=== PATIENT | female | born 1955 | race Asian ===

== ENCOUNTER 2017-05-23 13:01 | Emergency (ER) | payer BC, OTHER ==
[~2017-05-23] VITALS: Ht 157.5 cm; Wt 56.0 kg
[~2017-05-23 13:01] MED LIST: LOSA25TA2 PO; METF1000 PO; METF750T PO; SIMV20TA2 PO
[2017-05-23 13:13] VITALS: Ht 157.5 cm; Wt 56.0 kg
[2017-05-23] MEDS ORDERED: LIDOCAINE 2% (MDV) 20 ML INJ INJ ONE (14:00)
[2017-05-23] MEDS ORDERED: HYDROCODONE/APAP (5/325) TAB PO ONE (14:00)
[2017-05-23] MEDS ORDERED: LIDOCAINE 2% JELLY 5 ML TOP ONE (14:00)
[2017-05-23] MEDS ORDERED: SILVER NITRATE SWAB TOP ONE (14:00)
[2017-05-23] MEDS ORDERED: LIDOCAINE 2%/EPI MPF (SDV) 20 ML VIAL INJ ONE (14:30)
[2017-05-23] MEDS ORDERED: CEPH500C PO (14:58)
[2017-05-23] MEDS ORDERED: IBUP-1542 PO (14:58)
--- NOTE | 2017-05-24 15:35 | ERD ---
ER Documentation Chief Complaint Date/Time DATE: 05/24/17 TIME: 15:31 Chief Complaint laceration right hand base of 5th finger HPI 61-year-old woman sustained a large skin avulsion at the hypothenar eminence of the right hand while using a cucumber slicer. She cannot control the bleeding at home, and states her tetanus immunization is up-to-date. Patient denies paresis or paresthesias of the hand, no difficulty flexing and extending the fingers of the right hand, no chest pain or shortness of breath, no domestic violence. ROS All systems reviewed and are negative except as per history of present illness. Medications Home Meds Active Scripts Ibuprofen* (Ibuprofen*) 600 Mg Tablet, 600 MG PO Q8 for PAIN AND/OR INFLAMMATION , #60 TAB Prov:SANDI HAWKINS MD 05/23/17 Cephalexin* (Cephalexin*) 500 Mg Capsule, 500 MG PO TID, #15 CAP Prov:SANDI HAWKINS MD 05/23/17 Ibuprofen* (Ibuprofen*) 600 Mg Tablet, 600 MG PO Q8 for PAIN AND/OR INFLAMMATION , #30 TAB Prov:SANDI HAWKINS MD 05/23/17 Reported Medications Losartan Potassium* (Cozaar*) 25 Mg Tablet, 25 MG PO DAILY, TAB 03/25/14 Simvastatin (Simvastatin) 20 Mg Tablet, 20 MG PO DAILY, TAB 03/25/14 Metformin* (Glucophage* XR) 750 Mg Tab.sr.24h, 1500 MG PO DAILY, TAB 03/25/14 Metformin Hcl* (Metformin Hcl*) 1,000 Mg Tablet, 1000 MG PO WITH BREAKFAST, TAB 03/25/14 Allergies Allergies: Coded Allergies: No Known Allergy (Unverified , 09/07/14) PMhx/Soc Diabetes mellitus, hypertension History of Surgery: Yes (LAPAROSCOPY) Anesthesia Reaction: No Hx Neurological Disorder: No Hx Respiratory Disorders: No Hx Cardiac Disorders: Yes (HNT, HIGH CHOLESTEROL) Hx Psychiatric Problems: No Hx Miscellaneous Medical Probl: No Hx Alcohol Use: Yes Hx Substance Use: No Hx Tobacco Use: Yes Smoking Status: Light tobacco smoker FmHx Family History: No diabetes Physical Exam Vitals Vital Signs Date Time Temp Pulse Resp B/P Pulse Ox O2 Delivery O2 Flow Rate FiO2 05/23/17 13:13 98.1 95 18 141/72 97 Physical Exam GENERAL: Well-developed, well-nourished, well-hydrated, moderate discomfort. HEENT: Moist mucous membranes, pink conjunctiva, no cervical spine tenderness or step-off deformities, no goiter, no jaundice or icterus, extraocular movements intact without pain. No submandibular induration, and no pharyngeal erythema NEURO: Alert and oriented 3, cranial nerves II through XII intact bilaterally, pupils equal round reactive to light, no focal deficits or facial asymmetry, sensation intact distally Strength 5/5 in upper and lower extremities bilaterally CARDIAC: Regular rate and rhythm, no murmurs rubs or gallops LUNGS: Clear bilaterally no wheezing crackles or stridor ABDOMEN: Soft nontender, no guarding, no rigidity, no rebound, no psoas sign no obturator sign. Normoactive bowel sounds SKIN: Warm and dry to touch, 4 x 6 cm circular skin avulsion on the ulnar aspect of the right palm just over the hypothenar eminence. Multiple punctate pulsatile bleeds in the skin avulsion, no skin flap or laceration noted. No bone or tendon exposed. Patient has full flexion extension abduction abduction of her fingers both passively and actively without difficulty. Sensation to the median, ulnar, radial nerve of the right hand is intact and equal bilaterally. EXTREMITIES: No clubbing cyanosis or edema, calves are bilaterally symmetrical, no Homans sign, no popliteal cord sign. Distal pulses equal and bilateral PSYCH: Normal affect without agitation or irritability Results 24 hrs Current Medications Medications (Trade) Dose Ordered Sig/Melinda Route PRN Reason Start Time Stop Time Status Last Admin Dose Admin Lidocaine (Xylocaine 2% Jelly) 1 applic ONCE ONCE TOP 05/23/17 14:00 05/23/17 14:01 DC 05/23/17 14:04 Silver Nitrate (Silver Nitrate Swabs) 2 stick ONCE ONCE TOP 05/23/17 14:00 05/23/17 14:01 DC 05/23/17 14:04 Lidocaine (Xylocaine 2% (Mdv) 20 ml) 20 ml ONCE ONCE INJ 05/23/17 14:00 05/23/17 14:01 DC Acetaminophen/ Hydrocodone Bitart ([place] (5/325)) 1 tab ONCE ONCE PO 05/23/17 14:00 05/23/17 14:01 DC 05/23/17 14:04 Lidocaine/ Epinephrine (Xylocaine 2%/ Epi Mpf(Sdv)) 20 ml ONCE ONCE INJ 05/23/17 14:30 05/23/17 14:31 DC Procedures/MDM I administered Percocet 1 tablet p.o. for pain control. Skin avulsion was irrigated copiously with normal saline and pressure dressing was applied. Viscous lidocaine was applied for anesthetic purposes. Procedure note #1: Right ulnar nerve block. Site was inspected, irrigated and cleansed with Betadine. I administered 4 cc of 1% lidocaine without epinephrine to the right ulnar nerve at the second radial crease. About 5 minutes later patient fell some anesthesia to the ulnar nerve of the right hand and some pain relief. Regional nerve block was performed by me at the bedside using sterile gloves and sterile field. Patient tolerated procedure well. Procedure note #2: 1% lidocaine with epinephrine was administered to the subcutaneous tissue over the skin avulsion to help small arterial bleeding. About 6 absorbable 4-O sutures were placed to ligate the bleeding vessels. After bleeding was controlled, tissue adhesive was also applied over the skin avulsion to help with continued bleeding. After these interventions all bleeding was controlled, patient felt much better. Nonadherent dressing was applied over the skin avulsion and the entire right hand was wrapped with gauze. Patient feels much better at this time, and vital signs are normal, symptoms have improved. I did give strict instructions to return to the ED if symptoms continue or worsen, patient will otherwise follow-up with primary care physician. Patient understood instructions and agreed to plan. Disclaimer: Inadvertent spelling and grammatical errors are likely due to EHR/ dictation software use and do not reflect on the overall quality of patient care. Also, please note that the electronic time recorded on this note does not necessarily reflect the actual time of the patient encounter. Departure Diagnosis: Primary Impression: Skin avulsion Condition: Good Patient Instructions: Skin Avulsion SANDI HAWKINS MD May 24, 2017 15:35
== END 2017-05-23 15:41 | disposition home or self-care (01) ==
LOC: FTE 13:01
DX: S61.411A Laceration without foreign body of right hand, initial encounter (principal); I10 Essential (primary) hypertension; F17.210 Nicotine dependence, cigarettes, uncomplicated; W27.8XXA Contact with other nonpowered hand tool, initial encounter; Y92.9 Unspecified place or not applicable; Z79.84 Long term (current) use of oral hypoglycemic drugs

== ENCOUNTER 2017-05-25 11:56 | Emergency (ER) | payer BC ==
[~2017-05-25] VITALS: Wt 58.5 kg
[~2017-05-25 11:56] MED LIST changes: +CEPH500C PO; +IBUP-1542 PO
--- NOTE | 2017-05-25 12:34 | ERD ---
ER Documentation Chief Complaint Date/Time DATE: 05/25/17 TIME: 12:24 Chief Complaint RIGHT PALM WOUND RECHECK X2 DAYS HPI This 61-year-old female who presents the emergency department today for a wound check of a laceration that she sustained on her right hand 2 days ago. States she is not taking her antibiotics. States she has been taking her 's 800 mg of Motrin. Denies any fevers or chills ROS All systems reviewed and are negative except as per history of present illness. Medications Home Meds Active Scripts Ibuprofen* (Ibuprofen*) 600 Mg Tablet, 600 MG PO Q8 for PAIN AND/OR INFLAMMATION , #60 TAB Prov:SANDI HAWKINS MD 05/23/17 Cephalexin* (Cephalexin*) 500 Mg Capsule, 500 MG PO TID, #15 CAP Prov:SANDI HAWKINS MD 05/23/17 Ibuprofen* (Ibuprofen*) 600 Mg Tablet, 600 MG PO Q8 for PAIN AND/OR INFLAMMATION , #30 TAB Prov:SANDI HAWKINS MD 05/23/17 Reported Medications Losartan Potassium* (Cozaar*) 25 Mg Tablet, 25 MG PO DAILY, TAB 03/25/14 Simvastatin (Simvastatin) 20 Mg Tablet, 20 MG PO DAILY, TAB 03/25/14 Metformin* (Glucophage* XR) 750 Mg Tab.sr.24h, 1500 MG PO DAILY, TAB 03/25/14 Metformin Hcl* (Metformin Hcl*) 1,000 Mg Tablet, 1000 MG PO WITH BREAKFAST, TAB 03/25/14 Allergies Allergies: Coded Allergies: No Known Allergy (Unverified , 09/07/14) PMhx/Soc History of Surgery: Yes (LAPAROSCOPY) Anesthesia Reaction: No Hx Neurological Disorder: No Hx Respiratory Disorders: No Hx Cardiac Disorders: Yes (HNT, HIGH CHOLESTEROL) Hx Psychiatric Problems: No Hx Miscellaneous Medical Probl: No Hx Alcohol Use: Yes Hx Substance Use: No Hx Tobacco Use: Yes Physical Exam Vitals Vital Signs Date Time Temp Pulse Resp B/P Pulse Ox O2 Delivery O2 Flow Rate FiO2 05/25/17 12:05 98.1 83 20 123/70 95 Physical Exam Const: No acute distress Head: Atraumatic Eyes: Normal Conjunctiva ENT: Normal External Ears, Nose and Mouth. Neck: Full range of motion..~ No meningismus. Resp: Clear to auscultation bilaterally Cardio: Regular rate and rhythm, no murmurs Abd: Soft, non tender, non distended. Normal bowel sounds Skin: Evidence of right hand palmar skin avulsion over the hyperthenar eminence. No erythema or warmth. No purulent drainage Back: No midline or flank tenderness Ext: No cyanosis, or edema. Right hand with full active range of motion of fingers. Neur: Awake and alert Psych: Normal Mood and Affect Procedures/MDM This 61-year-old female who presents the emergency department today for a wound check of a avulsion laceration that she sustained 2 days ago while cutting some cucumber with a slicer. 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 I did see this patient with Dr. Hawkins and patient had multiple buried suture placed along with Dermabond. Patient was instructed to fill a prescription for Keflex. She did not do this. I have explained to the patient that this is important that as it is her hand and she does have a history of diabetes. Patient indicated she would go pickle sorter her medication today. Patient did indicate she was taking her 's 800 mg of Motrin. I asked the patient if she needed stronger pain medication and she stated no. Patient's wound appears to be healing well at this time. There is no erythema or warmth. There is a little bit of some drainage however it appears to be secondary from the Surgicel and gauze padding. Low suspicion for sepsis, deep space infection. Patient is afebrile and otherwise well-appearing. Patient instructed follow-up with her primary care doctor and keep the wound clean and dry. She was given a work note on her last visit and she does not feel that it needs to be extended at this time. At this time the patient is stable for discharge and outpatient management. Patient should follow up with their PCP in the next 1-2 days. They may return to the emergency department sooner for any persistent or worsening of symptoms. Patient understood and agreed with the plan. Departure Diagnosis: Primary Impression: Encounter for wound re-check Condition: Fair Patient Instructions: Wound Check, Lac F/U (No Infection) Referrals: HÉCTOR MCCRARY MD (PCP) Additional Instructions: Call your primary care doctor TOMORROW for an appointment during the next 1-2 days.See the doctor sooner or return here if your condition worsens before your appointment time. Take antibiotics as prescribed Keep wound clean and dry Take Tylenol Motrin for pain BERENICE CALLES PA-C May 25, 2017 12:34
== END 2017-05-25 12:56 | disposition home or self-care (01) ==
LOC: FTE 11:56
DX: Z48.01 Encounter for change or removal of surgical wound dressing (principal); I10 Essential (primary) hypertension; Z79.84 Long term (current) use of oral hypoglycemic drugs; Z87.892 Personal history of anaphylaxis
CPT/HCPCS: 99281